=== PATIENT | female | born 1995 | race Caucasian/White ===

== ENCOUNTER 2017-08-18 17:51 | Day surgery (SDC) | payer OTHER ==
[2017-08-18 18:24] VITALS: BMI 39.6
--- NOTE | 2017-08-18 18:29 | PDOC.LDHP ---
Labor and Delivery H&P Chief complaint: decreased movement HPI: 22 y/o G1 at 34w0d, patient of Dr. Stokes, presents with decreased movement today. Only felt 2 kicks while doing counts. Tried drinking a slushy but did not improve. Denies VB, LOF, ctx, or other concerns. ROS neg for HEENT, cv, pulm, gi, gu, neuro, psych, skin, musculoskeletal or constitutional symptoms other than mentioned above. OB History Details: First . Received progesterone early for spotting. No complications otherwise. Current complications: none Past Medical History: None Current medications: pre-lauro vitamins Previous surgical history: none Allergies/Adverse Reactions: Allergies Allergy/AdvReac Type Severity Reaction Status Date / Time kiwi Allergy Verified 08/18/17 18:21 pineapple Allergy Verified 08/18/17 18:21 Social history: none - Physical Exam Vital signs reviewed and normal: yes General: NAD, resting Lungs: nonlabored breathing Abdomen: gravid Extremeties: no edema FHT: category 1 (150s, mod variability, + accels, no decels) Valliant contractions every: none - OB Labs Blood type: O RH: positive - Assessment 22 y/o G1 at 34w0d with reactive NST. - Plan -: D/c home with precautions. Advised to keep all appointments and continue activity counts.
== END 2017-08-18 18:40 | disposition home or self-care (01) ==
LOC: L&D/OP 17:51
PROVIDERS: ATTEND Obstetrics & Gynecology
DX: O36.8130 Decreased fetal movements, third trimester, not applicable or unspecified (principal); Z91.018 Allergy to other foods; Z3A.34 34 weeks gestation of pregnancy
CPT/HCPCS: 99281

== ENCOUNTER 2017-09-28 10:37 | Inpatient (IN) | payer BC, OTHER ==
[2017-10-01 22:04] VITALS: BMI 40.6
[2017-10-01] MEDS ORDERED: Misoprostol 100 MCG TAB ONE (22:15)
[2017-10-01] MEDS ORDERED: Ondansetron HCl/PF 4 MG/2 ML Vial IVP PRN (22:23)
[2017-10-01] MEDS ORDERED: Promethazine HCl 25 MG/ML VIAL IM PRN (22:23)
[2017-10-01] MEDS ORDERED: Ibuprofen 800 MG TAB PO PRN (22:23)
[2017-10-01] MEDS ORDERED: NS / Oxytocin 40 units/1000ml 1,000 ML IV PRN (22:23)
[2017-10-01] MEDS ORDERED: Misoprostol 200 MCG TAB PR PRN (22:23)
[2017-10-01] MEDS ORDERED: Zolpidem Tartrate 5 MG TAB PO PRN (22:23)
[2017-10-01] MEDS ORDERED: Acetaminophen 500 MG TAB PO PRN (22:23)
[2017-10-01] MEDS ORDERED: Diphenoxylate HCl/Atropine Tablet PO PRN ×2 (22:23)
[2017-10-01] MEDS ORDERED: HYDROcodone/Acetaminophen 5/325 mg Tablet PO PRN ×2 (22:23)
[2017-10-01] MEDS ORDERED: Lidocaine 1% (PF) 30 ML VIAL SC PRN (22:23)
[2017-10-01] MEDS ORDERED: Docusate 100 MG CAP PO PRN (22:23)
[2017-10-01] MEDS ORDERED: Butorphanol Tartrate 1 MG/ML VIAL SLOW IVP PRN (22:23)
[2017-10-01] MEDS: Lactated Ringer's 1,000 ML IV SCH (22:33)
[2017-10-01 23:03] LABS: Hemoglobin 11.5 g/dL (12.0-16.0); Mean Corpuscular HGB CONC 35.9 g/dL (32.0-36.0); Mean Corpuscular Volume 89.3 fL (78.0-98.0); Mean Platelet Volume 6.7 fL (7.4-10.4); Platelet Count 212 thou/uL (130-400); RBC Distribution Width 12.3 % (11.5-14.5); White Blood Cell (WBC) Count 9.7 thou/uL (4.8-10.8)
[2017-10-01 23:51] LABS: Syphilis Antibody Nonreactive (Nonreactive); Syphilis Antibody Index 0.04 S/CO (<1.00 Non-Reactive)
[2017-10-02 00:19] LABS: HBSAg Index 0.26 S/CO (0-0.99); Hep B Surf Ag Non-Reactive S/CO (NonReactive)
[2017-10-02] MEDS: Misoprostol 100 MCG TAB VAG SCH ×3 (01:36→20:47)
[2017-10-02] MEDS ORDERED: NS w/ Oxytocin 10 units 500 ML ONE (05:26)
[2017-10-02] MEDS ORDERED: DISCONTINUE ALL PREVIOUS NARCOTICS FS SCH (07:45)
[2017-10-02] MEDS ORDERED: Bupivacaine 0.5% 20 ML, fentaNYL Citrate/PF 400 MCG in Sodium Chloride 0.9% 72 ML EPIDURAL SCH ×2 (07:45→15:45)
[2017-10-02] MEDS ORDERED: Bupivacaine/Epinephrine 0.25% 30 ML VIAL ONE (12:00)
[2017-10-02] MEDS: Lactated Ringer's 1,000 ML IV SCH (12:10)
[2017-10-02] MEDS ORDERED: Acetaminophen/Codeine 30-300mg Tablet PO PRN (19:23)
[2017-10-02] MEDS ORDERED: Preparation H Ointment 28 GM TUBE PR PRN (19:23)
[2017-10-02] MEDS ORDERED: Zolpidem Tartrate 5 MG TAB PO PRN (19:23)
[2017-10-02] MEDS ORDERED: Ondansetron HCl/PF 4 MG/2 ML Vial IVP PRN (19:23)
[2017-10-02] MEDS ORDERED: Bisacodyl 10 MG SUPP PR PRN (19:23)
[2017-10-02] MEDS ORDERED: Lanolin Ointment 7 GM TUBE TOP PRN (19:23)
[2017-10-02] MEDS ORDERED: Benzocaine/Menthol 20-0.5% 60 ML CAN TOP PRN (19:23)
[2017-10-02] MEDS ORDERED: diphenhydrAMINE 25 MG CAP PO PRN (19:23)
[2017-10-02] MEDS ORDERED: Milk Of Magnesia 30 ML UDCUP PO PRN (19:23)
[2017-10-02] MEDS ORDERED: NS / Oxytocin 40 units/1000ml 1,000 ML IV SCH (19:30)
[2017-10-02] MEDS: Ibuprofen 800 MG TAB PO SCH (22:37)
[2017-10-02] MEDS: Docusate Calcium (SURFAK) 240 MG CAP PO SCH (22:38)
[2017-10-03] MEDS: Ibuprofen 800 MG TAB PO SCH ×3 (05:26→20:42)
[2017-10-03 06:27] LABS: Hemoglobin 10.3 g/dL (12.0-16.0); Mean Corpuscular HGB CONC 34.4 g/dL (32.0-36.0); Mean Corpuscular Hemoglobin 30.9 pg (27.0-31.0); Mean Platelet Volume 6.9 fL (7.4-10.4); Platelet Count 190 thou/uL (130-400); RBC Distribution Width 12.3 % (11.5-14.5); Red Blood Cell (RBC) Count 3.34 mill/uL (4.20-5.40)
[2017-10-03] MEDS: Ferrous Sulfate 325 MG TAB PO SCH ×2 (08:25→17:08)
[2017-10-03] MEDS ORDERED: Adacel (T-DAP) 0.5 ML VIAL IM ONE (09:00)
[2017-10-03] MEDS: Prenatal Vitamin 1 TAB PO SCH (09:21)
[2017-10-03] MEDS: Docusate Calcium (SURFAK) 240 MG CAP PO SCH ×2 (09:21→20:43)
[2017-10-03] MEDS: Acetaminophen/Codeine 30-300mg Tablet PO PRN ×3 (09:22→23:16)
[2017-10-04] MEDS: Ibuprofen 800 MG TAB PO SCH ×2 (05:55→13:34)
[2017-10-04 07:33] VITALS: BP 104/65; TEMP 98
[2017-10-04] MEDS: Docusate Calcium (SURFAK) 240 MG CAP PO SCH (08:48)
[2017-10-04] MEDS: Prenatal Vitamin 1 TAB PO SCH (08:48)
[2017-10-04] MEDS: Ferrous Sulfate 325 MG TAB PO SCH (08:48)
== END 2017-10-04 14:40 | disposition home or self-care (01) | DRG 775 ==
LOC: EDSTATUS 14:49 → L&D 10-01 21:31 → 3SW 10-02 20:24
PROVIDERS: ADMIT Obstetrics & Gynecology; ATTEND Obstetrics & Gynecology
PROC: 3E0P7VZ Introduction of Hormone into Female Reproductive, Via Natural or Artificial Opening (ICD-10-PCS; 2017-10-01)
PROC: 3E033VJ Introduction of Other Hormone into Peripheral Vein, Percutaneous Approach (ICD-10-PCS; 2017-10-01)
PROC: 10907ZC Drainage of Amniotic Fluid, Therapeutic from Products of Conception, Via Natural or Artificial Opening (ICD-10-PCS; 2017-10-01)
PROC: 10D07Z6 Extraction of Products of Conception, Vacuum, Via Natural or Artificial Opening (ICD-10-PCS; principal; 2017-10-02)
PROC: 0W8NXZZ Division of Female Perineum, External Approach (ICD-10-PCS; 2017-10-02)
DX: O48.0 Post-term pregnancy (principal); Z3A.40 40 weeks gestation of pregnancy; Z37.0 Single live birth
CPT/HCPCS: 36415; 51702; 85027; 86780; 86850; 86900; 86901; 87340; J2001; J3010; J3490; J7050